=== PATIENT | male | born 1975 | race Caucasian/White ===

== ENCOUNTER 2016-11-26 09:43 | Emergency (ER) | payer BC ==
[2016-11-26 09:51] VITALS: BP 148/82; BMI 25.7
--- NOTE | 2016-11-26 10:23 | DR.GENAD ---
HPI - PCP Primary Care Physician: TELLY SINGH - HPI Comment HPI Comment: WORSE TODAY. DENIES TRAUMA. WENT BACK TO WORK. - Complaint/Symptoms Chief Complaint Doctors Comments: LOW BACK PAIN RADIATING TO LEFT LEG TIMES ONE DAY. Chief Complaint:: PATIENT STATED HE WAS WORK SATURDAY AND HIS LOWER BACK STARTED HURTING SHOOTING PAIN DOWN HIS LEFT LEG. - Nurses notes reviewed Nurses Notes Review: Yes - Source History Provided: Patient - Mode of Arrival Mode of Arrival: Ambulatory - Timing Onset of Chief Complaint: 11/23/16 Came on: Suddenly - Duration Duration: Constant Duration: Days - Severity Severity: Moderate PMH - PMH Past Medical History: No Past Surgical History: Yes Surgical History: Ortho Surgery Past Surgical History Comment: PINS IN LEFT ANKLE - Family History History of Family Medical Conditions: Yes Family Medical History: Hypertension - Social History Does patient currently use any type of tobacco product: Yes Have you used tobacco products in the last 12 months: Yes Type of Tobacco Use: Cigarettes How many years tobacco product used: 20 Does any household member use tobacco: Yes Alcohol Use: None Do you use any recreational Drugs:: No Lives With: Family Lives Where: Home - infectious screening In the last 2 months have you had wt loss of >10#?: NO Have you had fever, night sweats or hemotysis?: No Have you traveled outside the country in the last 6 months?: No Isolation: Standard ROS - Review of Systems Constitutional: No Symptoms Reported Eyes: No Symptoms Reported ENTM: No Symptoms Reported Respiratoy: No Symptoms Reported Cardiovascular: No Symptoms Reported Gastrointestinal/Abdominal: No Symptoms Reported Genitourinary: No Symptoms Reported Neurological: No Symptoms Reported Musculoskeletal: Back Pain, Back Integumentary: No Symptoms Reported Hematologic/Lymphatic: No Symptoms Reported Endocrine: No Symptoms Reported All Other Systems: Reviewed and Negative PE - Vital Signs Vitals: Temperature 99.0 F Pulse Rate 69 Respiratory Rate 16 Blood Pressure 148/82 O2 Sat by Pulse Oximetry 100 - General Limitations: No Limitations General Appearance: Alert - Head Head Exam: Normal Inspection - Eyes Eye exam: Normal Appearance - ENT ENT Exam: Normal External Ear Exam External Ear Exam: Normal External Inspection TM/Canal Exam: Bilateral Normal Mouth Exam: Normal Inspection Throat Exam: Normal Inspection - Neck Neck Exam: Normal Inspection - Chest Chest Inspection: Symmetric Chest Wall Rise - Respiratory Respiratory Exam: Normal Lung Sounds Bilat Respiratory Exam: Bilateral Clear to Auscultation - Cardiovascular Cardiovascular Exam: Regular Rate, Normal Rhythm, Normal Heart Sounds - Abdominal Exam Abdominal Exam: Normal Bowel Sounds, Soft. negative: Tenderness - Extremities Extremities Exam: Normal Inspection - Back Back Exam: Paraspinal Tenderness, Vertebral Tenderness (LOWER BACK) - Neurologic Neurological Exam: Alert, Oriented X3 - Psychiatric Psychiatric Exam: Normal Affect, Normal Mood - Skin Skin Exam: Erythema MDM - Differential Diagnosis Differential Diagnosis: LOW BACK STRAIN, SPRAIN AND FRACTURE Course - Treatment Treatment: IM MED FOR PAIN. - Reevaluation 1st: Improved - Education/Counseling Education/Counseling: Patient, Education Educated On: Treatment, Diagnosis, Needs for Follow Up ROR - XRAY XRAY Interpreted by: Radiologist XRAY Findings: REPORT DISCUSS WITH PATIENT. - Diagnosis Discharge Problem: Lumbosacral strain Qualifiers: Encounter type: initial encounter Qualified Code(s): S39.012A - Strain of muscle, fascia and tendon of lower back, initial encounter Lower back pain Qualifiers: Chronicity: acute Back pain laterality: bilateral Sciatica presence: with sciatica Sciatica laterality: sciatica of left side Qualified Code(s): M54.42 - Lumbago with sciatica, left side - Discharge Plan Disposition: HOME, SELF-CARE Condition: Stable Prescriptions: Cyclobenzaprine HCl [FLEXERIL 10 MG *] 10 mg PO TID #20 tab Ibuprofen [MOTRIN TAB 600 MG *] 600 mg PO TID PRN #20 tab PRN Reason: Pain/Inflammation - Follow ups/Referrals Follow ups/Referrals: TELLY SINGH [Primary Care Provider] - 2 days - Instructions Instructions: Back Pain, Adult, [id number], Lumbosacral Strain Additional Instructions: RETURN TO ED IF WORSE.
[2016-11-26] MEDS ORDERED: TORADOL 60 MG VIAL IM ONE (10:24)
[2016-11-26] MEDS ORDERED: NORFLEX INJ IM ONE (10:24)
[2016-11-26] MEDS ORDERED: NORFLEX INJ ONE (10:26)
[2016-11-26] MEDS ORDERED: TORADOL 60 MG VIAL ONE (10:26)
--- NOTE | 2016-11-26 10:48 | RAD ---
HISTORY: Low back pain, left radiculopathy Study: Lumbar spine five view Comparison: None Findings: The alignment is normal. The vertebral bodies are of average height. The disc spaces are preserved w ith the exception of slight narrowing at L5-S1. No spondylolysis or spondylolisthesis is identified. The pedicles are intact. The SI joints are normal. IMPRESSION: Mild disc space narrowing L5-S1 Reported By:
== END 2016-11-26 11:10 | disposition home or self-care (01) ==
LOC: ER 10:03
DX: S39.012A Strain of muscle, fascia and tendon of lower back, initial encounter (principal); M54.42 Lumbago with sciatica, left side; Y33.XXXA Other specified events, undetermined intent, initial encounter; Y92.69 Other specified industrial and construction area as the place of occurrence of the external cause
CPT/HCPCS: 72110; 96372; 99282; J1885; J2360